=== PATIENT | female | born 1970 | race Caucasian/White ===

== ENCOUNTER 2023-07-09 06:11 | Day surgery (SDC) | payer SELFPAY ==
[2023-07-05 14:09] VITALS: BMI 32.1
[2023-07-05 14:23] LABS: Hematocrit 41.7 % (37.0-47.0); Hemoglobin 13.7 g/dL (12.0-16.0); Mean Corp Hgb Conc. 32.9 g/dL (33.0-37.0); Mean Corpuscular Volume 88.3 fL (81.0-99.0); Mean Platelet Volume 10.6 fL (7.4-10.4); Platelet Count 254 10^3/uL (130-400); Red Blood Cell Count 4.72 10^6/uL (4.20-5.40); Red Cell Dist. Width 13.2 % (11.5-14.5); White Blood Cell Count 4.6 10^3/uL (4.8-10.8)
[2023-07-05 14:30] LABS: INR 1.12; PT 14.3 Sec (11.4-14.6)
[2023-07-05 14:31] LABS: APTT 28.8 Sec (23.4-35.0)
[2023-07-05 14:52] LABS: ALT (SGPT) 33 U/L (0-35); AST (SGOT) 31 U/L (14-36); Albumin 4.6 g/dl (3.5-5.0); Alkaline Phosphatase 160 U/L (38-126); Blood Urea Nitrogen 16 mg/dl (7-17); Calcium 13.1 mg/dl (8.4-10.2); Carbon Dioxide 28 mmol/L (22-30); Chloride 105 mmol/L (98-107); Estimated Creatinine Clearance 86 ml/min; Glucose 96 mg/dl (70-99); Potassium 4.8 mmol/L (3.5-5.1); Sodium 137 mmol/L (135-145); Total Bilirubin 1.1 mg/dl (0.2-1.3); Total Protein 7.4 g/dl (6.3-8.2); eGFR > 60.00
[2023-07-09] VITALS (14 sets, daily range): BP systolic 93–122; BP diastolic 58–81; BMI 32.1
[2023-07-09] MEDS: HEPARIN 5000 UNITS SC (06:48)
[2023-07-09] MEDS: TYLENOL 1000 MG PO (06:48)
[2023-07-09] MEDS: NORMOSOL-R 1000 IV (07:09)
[2023-07-09 08:28] LABS: Turbo PTH 516.2 pg/ml (13.6-85.8)
[2023-07-09 09:28] LABS: Turbo PTH 381.9 pg/ml (13.6-85.8)
[2023-07-09 10:37] LABS: Turbo PTH 97.6 pg/ml (13.6-85.8)
--- NOTE | 2023-07-09 11:09 | OR.RPT ---
Operative Report
Operative Report
Preoperative Diagnosis: �Parathyroid hyperparathyroidism - E210
Postoperative Diagnosis: Same
Surgeon: Jacky Castaneda M.D.
Operation: Neck exploration, right superior, inferior, and left inferior parathyroidectomy - 68122
Anesthesia: GET
Estimated Blood Loss: 3 cc
Drains: None
Specimen: �right superior, inferior, left inferior neck nodules, rule out parathyroid adenomas
Findings: Three parathyroid adenomas and a normal appearing left superior parathyroid gland on the posterior surface of the left thyroid superior pole (marked with a #4-0 Prolene)
Complications: �None
Procedure:
The patient was taken to the operating room and placed in the usual supine position. After adequate general endotracheal anesthesia was established, the patient's neck was extended, prepped, and draped in the typical sterile fashion. A 4 cm
transcervical incision was made two fingerbreadths above the sternal notch. The skin incision was made with the #15 blade, and this was taken through the skin into the subcutaneous tissue. The underlying platysma muscle was divided, and subplatysmal
flaps were created superiorly to the thyroid cartilage and inferiorly to the sternal notch. Strap muscles were identified and at the midline.
Attention was turned to the patient's right side of the neck. The right thyroid lobe was mobilized medially. During this process, the right recurrent laryngeal nerve was identified and preserved throughout the surgery. The right upper and lower neck
nodules were identified and noted to be enlarged, excised, and sent to the pathology department, which showed hypercellular parathyroid glands.
The attention was turned to the left side of the neck. The left thyroid lobe was mobilized medially. During this process, the left recurrent laryngeal nerve was identified and preserved throughout the surgery. The left lower neck nodule was
identified and noted to be enlarged, excised, and sent to the pathology department, which showed a hypercellular parathyroid gland. The normal
[2023-07-09] MEDS: DILAUDID 0.5 MG IV (11:12)
[2023-07-09] MEDS: TYLENOL 650 MG PO (13:20)
== END 2023-07-09 13:40 | disposition home or self-care (01) ==
LOC: SDS 06:11
PROVIDERS: ATTENDING PHYSICIAN Surgery; FAMILY PHYSICIAN Physician Assistant
DX: E21.0 Primary hyperparathyroidism (principal)
CPT/HCPCS: 60500; 88305; 88332; 36415; 80053; 83970; 85027; 85610; 85730; 88331; 93005